=== PATIENT | male | born 1985 | race Hispanic/Latino ===

== ENCOUNTER 2018-02-04 02:30 | Emergency (ER) | payer SELFPAY ==
[2018-02-04] MEDS ORDERED: CEFTRIAXONE SODIUM 1 GM ONE (02:50)
[2018-02-04] MEDS ORDERED: DEXAMETHASONE SOD PHOSPHATE 4 MG/ML 5ML VIAL ONE (02:50)
[2018-02-04] MEDS ORDERED: LIDOCAINE HCL-MPF 1% 2ML VIAL ONE (02:50)
[2018-02-04] MEDS ORDERED: IPRATROPIUM/ALBUTEROL SULFATE 3 ML SOLUTION IH ONE (02:53)
== END 2018-02-04 03:49 | disposition home or self-care (01) ==
LOC: EDH 02:30
DX: J02.9 Acute pharyngitis, unspecified (principal)
CPT/HCPCS: 71046; 87804 ×2; 94640; 96372 ×2; 99285; J0696; J1100; J3490